=== PATIENT | male | born 1995 | race Caucasian/White ===

== ENCOUNTER → 2019-01-17 | Outpatient (CLI) | payer OTHER ==
[~2019-01-17] VITALS: Ht 152.4 cm; Wt 88.4 kg
[~2019-01-17] MED LIST: BUPRENORPHINE HC2 MG SUBLING; EFFEXOR XR75 MG PO; REMERON15 M2 PO
[2019-01-17 11:10] VITALS: BP 126/70
--- NOTE | 2019-01-17 11:22 | NUR ---
Pain Clinic Assessment: 1. History of Osteoarthritis: Not Applicable History of Rheumatoid Arthritis: Not Applicable 2. Height: 5 ft. 0 in. 152.4 cm. Weight: 194.8 lb. oz. 88.361 kg. Patient's BMI: 38.0 3. Vital Signs: BP: 126/70 Pulse: 94 Resp: 16 Temp: 02 Sat: 100 ECG Mon: 4. Pain Intensity: 6 5. Fall Risk: Dizziness: N Needs help standing or walking: N Fallen in the last 3 months: N Fall risk comments: 6. Patient on Blood Thinner: None 7. History of Hypertension: N 8. Opioid Therapy greater than 6 weeks: N Opiate Contract Signed: 9. Risk Assessment Tool Provided: MODERATE RISK 08/01 10. Functional Assessment Tool: 11. Recreational Drug Use: Never Drug Type: Tobacco Use: Current Every Day Smoker Tobacco Type: Cigarettes Amount or Packs/day: 1/4 How Many Years: 8 Alcohol Use: No Frequency: Quant:
--- NOTE | 2019-02-03 16:52 | HPC ---
[facility] [address] [address] PAIN MANAGEMENT CONSULTATION Name: LUCA ORANTES Room #: [facility].#: [id number] Admission: 01/17/19 Attend Phys: Ean Bailey MD Discharge: Date of : [birth year] Report #: [id number] THIS REPORT FOR: //name// CC: Pancho Bailey DATE OF SERVICE: 01/17/2019 A 50-minute consultation for chronic pain and anxiety. The patient is a nice 23-year-old young man who is here today in our clinic to discuss chronic pain. He describes a daily, sharp, stabbing pain across his low back that radiates a bit into the iliac crest on the left, but no further. He reports that he fell from the monkey bars when he was in grade school. He had some chronic back pain following that. It did not stop him from playing soccer in high school, and he remains active, continuing to ride his bicycle for exercise up to 20 miles per week. Over the years, he went to a chiropractor, at times up to 3 times a week, but not anymore. He has been using pain medication to help with his pain. He suffers from what he describes as an anxiety disorder. He also has depression. When we discussed his anxiety, he reports that he is not comfortable in crowds and oftentimes worries in public about others. He does not feel safe. I commiserated. It is a dangerous world these days. He has seen Dr. Rodrigez who initially wrote for medication, but they did not hit it off. Apparently when he asked to see another physician, he was told that he could not see another physician at [facility] for up to 2 years, some policy of their clinic. He has no current psychiatric or prescribing physician for his emotional problems. He reports that he was started on opioids for treatment of chronic pain in the . At one time, he was taking oxycodone 15 mg 4 times a day. When he was unable to get it, he felt a compulsion to buy some on the street. He has not done this in some time and is now on buprenorphine. He is taking it for pain, not for substance abuse disorder, and Dr. Cox has prescribed it in the form of Subutex 2 mg t.i.d. He reported it is 4 times daily, but the prescription drug monitoring program information says 90 tablets per month. CURRENT MEDICINES: In addition to the Subutex 4 mg daily include venlafaxine 150 mg daily in addition to mirtazapine 50 mg at bedtime. He is not certain why he is taking 2 antidepressants. ALLERGIES: None. [facility] [address] [place] [address] PAIN MANAGEMENT CONSULTATION Name: LUCA ORANTES Room #: REG [facility] Arana#: [id number] Admission: 01/17/19 Attend Phys: Ean Bailey MD Discharge: Date of : [birth year] Report #: [id number] PAST MEDICAL HISTORY: Significant only for the back pain and the emotional problems, including depression and anxiety. SOCIAL HISTORY: He currently lives with his parents. He has not worked for the last week or so because he says his back hurts. He works as a plant attendant. He has 2 years of college at [employer]. He does not have long-range plans. He denies use of street or recreational drugs. He denies use of alcohol. He is smoking about 0.25 pack a day and has done so for up to 8 years. He continues to chew tobacco. REVIEW OF SYSTEMS: Entirely negative other than nervousness, insomnia and depression. PHYSICAL EXAMINATION: GENERAL: Pleasant 23-year-old gentleman, soft spoken. Pain score 6/10. VITAL SIGNS: Blood pressure is 125/70, heart rate 94, respirations 16, O2 sat 100% on room air. His BMI is 26.4. He appears fit. Moves easily and independently from sitting to standing position, ambulates without any antalgic features. HEENT: Normal. NECK: Supple. CHEST: Clear. CARDIAC: Rhythm regular, without murmur. ABDOMEN: Soft. MUSCULOSKELETAL: Examination of the lumbar spine demonstrates a slight dextrorotational scoliosis and tenderness. There is minimal paravertebral tenderness. There is some pain with forward flexion, extension and rotation. IMPRESSION: 1. Lumbago, low back pain without radiculopathy. Rotational scoliosis noted on physical exam. 2. Anxiety, depression. RECOMMENDATIONS: 1. Physical therapy would be most important. Initiating a regular daily course of exercise would be helpful. 2. Discontinue Subutex. He has been off for 2 days and has not had any withdrawal at this point. I would completely stop. A 23-year-old should not be on buprenorphine for lumbago. He agrees. We will see if he can continue to remain off. 3. MRI of the lumbar spine to review findings. Plain film x-rays were initially recommended, but he has an order for MRI in hand. 4. Begin a nonsteroidal anti-inflammatory drug. I have started him on meloxicam 15 mg once daily. 5. Return to work force. I think it is important that he do so for many reasons, particularly for his low back. It would provide diversion and [address] [address] PAIN MANAGEMENT CONSULTATION Name: LUCA ORANTES Room #: [facility].#: [id number] Admission: 01/17/19 Attend Phys: Ean Bailey MD Discharge: Date of : [birth year] Report #: [id number] distraction. It should also be helpful for his depression and anxiety to be actively employed. 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 6. Follow up in 2 weeks. <ELECTRONICALLY SIGNED> By: Ean Bailey MD 02/03/19 [id number] Ean Bailey MD /nt
== END ==
LOC: PAIN 06:52
DX: M41.86 Other forms of scoliosis, lumbar region (principal); F41.9 Anxiety disorder, unspecified